=== PATIENT | male | born 1970 | race Caucasian/White ===

== ENCOUNTER 2018-09-27 07:09 | Day surgery (SDC) | payer BC, SELFPAY ==
[2018-09-27 07:41] VITALS: BP 130/90; PULSE 72; RESP 16; TEMP 35.7; O2SAT 98
[2018-09-27] MEDS: Povidone-Iodine Soln. 118 ML BTL TP (07:51)
[2018-09-27] MEDS: Lactated Ringers 1,000 ML 80 ML IV (07:51)
[2018-09-27] MEDS: Lidocaine 1% Pres-Free 5 ML VIAL (09:40)
[2018-09-27] MEDS: Bupivacaine 0.5% Pres-Free 30 ML VIAL (09:40)
[2018-09-27] MEDS: Dexamethasone 4 MG/ML VIAL (10:06)
--- NOTE | 2018-09-27 10:12 | W.PM.DSUDISC ---
Discharge Plan Disposition Patient Disposition: HOME Condition: Good Discharge Details Reason For Visit: EPF RIGHT FOOT Attending Provider: Siddharth Walker Primary Care Provider: Ana House Home Meds and New Rx's Prescriptions: No Action diphenhydramine HCl [Unisom Sleepgels] 50 mg Capsule 50 mg PO ONCE PRNRF: 0 melatonin 1 mg Tablet 1 mg PO HS PRNRF: 0 vitamin B complex Capsule 1 cap PO DAILY RF: 0 Men's Multivitamin 400-20-300 mcg Tablet 1 cap PO DAILY RF: 0 Discharge Instructions Activity:: Activity as Tolerated Remove Dressings/Wound Care:: Do Not Remove Shower/Bathe:: Cover Diet:: Normal Diet DS: Diagnosis Discharge Diagnosis (1) Plantar fasciitis of right foot: Start date: 09/27/18 Start time: 10:15 Status: Acute Asessment and Plan: PLANTAR FASCITIS RIGHT FOOT p: epf
--- NOTE | 2018-09-27 10:24 | W.PM.DSUDISC ---
Discharge Plan Disposition Patient Disposition: HOME Condition: Good Discharge Details Reason For Visit: EPF RIGHT FOOT Attending Provider: Siddharth Walker Primary Care Provider: Ana House Home Meds and New Rx's Prescriptions: New hydrocodone-acetaminophen 5-300 mg tablet 1 tab PO Q6H Qty: 7 RF: 0 Continued diphenhydramine HCl [Unisom Sleepgels] 50 mg Capsule 50 mg PO ONCE PRNRF: 0 melatonin 1 mg Tablet 1 mg PO HS PRNRF: 0 vitamin B complex Capsule 1 cap PO DAILY RF: 0 Men's Multivitamin 400-20-300 mcg Tablet 1 cap PO DAILY RF: 0 Discharge Instructions Activity:: Activity as Tolerated Remove Dressings/Wound Care:: Do Not Remove Shower/Bathe:: Cover Diet:: Normal Diet Discharge Orders Discharge Orders: Discharge Order (Routine); Ordered 09/27/18 Ordered By: Siddharth Walker DS: Diagnosis Discharge Diagnosis (1) Plantar fasciitis of right foot: Start date: 09/27/18 Start time: 10:25 Status: Acute Asessment and Plan: epf RIGHT FOOT
[2018-09-27 10:55] VITALS: BP 125/83; PULSE 62; RESP 16; TEMP 36.1; O2SAT 97
--- NOTE | 2018-09-27 12:24 | ROE_ITS ---
DATE OF PROCEDURE: September 27, 2018 PREOPERATIVE DIAGNOSIS: Recalcitrant right plantar fasciitis. POSTOPERATIVE DIAGNOSIS: Same. PROCEDURE: Endoscopic plantar fasciotomy, right foot. SURGEON: Jada IssaPRony. ANESTHESIA: Monitored Anesthesia Care with local block of the right foot utilizing 20 cc's of a 50/5 0 mixture 1% Lidocaine plain, 0.5% Marcaine plain. ANESTHESIA PROVIDER: Galina Anderson CRNA OPERATIVE INDICATIONS: 48-year-old white male with long-standing, chronic right plantar fasciitis th at has responded poorly to conservative treatments. He has failed conservative treatment and request ing surgical intervention. He understands risks and complications to include pain, scarring, infecti on, neurologic injury of the medial plantar nerves, persistent plantar fascial discomfort potentially requiring revisional procedures. Informed consent has been obtained. No promises made to the final outcome of surgery. REPORT OF OPERATION: Lee was brought to the operative suite, placed in the supine position, where the right foot was prepped and draped in the usual sterile podiatric fashion. Anesthesia being obtai lexis, the right foot was exsanguinated, a well-padded ankle tourniquet inflated 250 mmHg. Attention was directed to the medial aspect of the right foot approximately 50 cm in from the posteri or edge at about 25 up from the plantar skin, a 1 cm vertical incision was made just above the planta r fascial tissue. A curved hemostat was then inserted. I was able to feel the medial edge of the pl melvin fascia and come down along its plantar surface. The plantar fascial elevator was then inserted into this incision and a tunnel made crossing the plantar aspect of the foot, exiting at the plantar lateral edge of the heel. The obturator was then inserted. A stab incision was placed laterally a nd the cannula placed in good position. The endoscope was inserted from a lateral position. The mar kings within the cannula were easily identified, as was the white fibrous plantar fascial tissue. A picture was obtained at this level. The hook blade was inserted from a medial approach and the medi al third of the plantar fascia incised. The triangular blade was then used to free up some additiona l fibers. When I dorsiflexed the foot, the fibers spread and I can see the underlying muscle. A pic ture was obtained at this level. I once again put in the triangular blade, did a little teasing of s ome residual tissue. The endoscope was removed, placed in the other side and visualization achieved. The triangular blade once again was used to tease some additional fibers. The endoscope and blade were removed. Irrigation was performed through the cannula. The cannula was subsequently removed. The incisions were closed with simple interrupted suture #4-0 Nylon. Four milligrams of Dexamethason e Phosphate was then infused into the wound. Gauze fluff compression dressings were applied. The to urniquet was released; vascularity returned immediately to all toes. The patient left the OR with vi janak signs stable, vascular status intact. Sharp and sponge counts were correct. He will be followed by me in the office next week. cc: LEW Rothman
== END 2018-09-27 11:52 | disposition home or self-care (01) ==
PROVIDERS: PCP Registered Nurse; Visit Provider Podiatrist
PROC: (CPT 29893; principal; 2018-09-27 09:30)
DX: M72.2 Plantar fascial fibromatosis (principal); M79.671 Pain in right foot
CPT/HCPCS: 29893; J0690; J1100; J1885; J2405